=== PATIENT | female | born 1980 | race Caucasian/White ===

== ENCOUNTER 2021-05-18 10:03 | Emergency (ER) | payer BC, SELFPAY ==
[2021-05-18 10:13] VITALS: BP 160/122; PULSE 95; RESP 18; TEMP 36.4; O2SAT 100
--- NOTE | 2021-05-18 10:14 | ED.GENADULT ---
HPI - General Adult General Chief complaint: Upper Respiratory Infection Stated complaint: cough/fever Source: patient Mode of arrival: ambulatory Limitations: no limitations History of Present Illness HPI narrative: Patient is a 40-year-old female who presents to the [facility] via POV for evaluation of upper respiratory symptoms that have been present for 2 weeks. Additionally, she reports productive cough, myalgias, fever, chills, and fatigue. She reports her T-max to be 102.0. Sputum production is small in quantity and thick and white in color. DayQuil and Zyrtec provide minimal relief. She last dosed herself with these medications approximately 30 minutes prior to arrival. Sleep improves symptoms. Nothing worsens symptoms. 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 She is fully vaccinated against Covid. She recently tested negative for Covid twice. History of pneumonia. She states today symptom are identical to previous episode of pneumonia. Related Data Home Medications Medication Instructions Recorded Confirmed cetirizine-pseudoephedrine tablet PO 05/18/21 [Zyrtec-D] citalopram mg 05/18/21 omeprazole 05/18/21 Allergies Allergy/AdvReac Type Severity Reaction Status Date / Time nickel Allergy Intermediate Rash Verified 05/18/21 10:09 Sulfa (Sulfonamide Allergy Unknown Rash Verified 05/18/21 10:09 Antibiotics) Review of Systems Review of Systems: Denies history of COPD, bronchitis, asthma, and pneumonia. Denies current/past tobacco use. Pertinent negatives: sweats, change in appetite, fatigue, skin color changes, headache, nasal congestion/discharge, dizziness, lymphadenopathy, sinus problems, ear pain/drainage, chest pain, heart murmurs, heart palpitations, shortness of breath, wheezing, cyanosis, hemoptysis, hoarseness, orthopnea, pleuritic pain, nausea, vomiting, diarrhea PMFSH Past Medical History Medical History (Updated 05/18/21 @ 10:45 by MIKI Elliott, SHIRLEY) Anxiety Depression GERD (gastroesophageal reflux disease) Seasonal allergies Family History Family History Other Cerebrovascular accident Diabetes mellitus Family history of cardiovascular disease Family history of malignant neoplasm Hypertension Social History Social History Smoking status: Former smoker Alcohol intake: current Comments I have reviewed and agree with the patient's past medical, surgical, social, and family hx as documented by the RN. There is no relevant family history pertinent to the presenting complaint. Exam Narrative: GENERAL: Well-appearing, well-nourished, and in no acute distress. HEAD: Normocephalic, atraumatic. No sinus tenderness or facial swelling appreciated. EYES: PERRLA and EOMI. No evidence of erythema, swelling, or drainage. ENT: Bilateral external ears and ear canals normal. Bilateral TMs are normal.No TM perforation. Nares clear, no rhinorrhea or epistaxis. Bilateral turbinates without erythema/ swelling. Mucous membranes moist and pink. Uvula is midline without erythema and swelling. No evidence of petechial rash, cobblestoning, lesions, ulcers, erythema, swelling, exudates, peritonsillar abscess, tenting, or drooling. Breath odor and voice normal. NECK: Supple. No Lymphadenopathy or nuchal rigidity appreciated. CHEST: Bilateral lung rodriguez are clear to auscultation. No respiratory distress.No pleuritic cp upon examination. Mild wet cough appreciated upon examination. HEART: Regular rate and rhythm. No murmur, gallop, or rub heard. EXTREMITIES: Normal range of motion. No edema. SKIN: Warm, dry, no rash. NEURO: No focal deficits. Alert and oriented x3. Course Course Emergency Course: The patient/guardian displays adequate decision making capability and despite a detailed discussion
[2021-05-18 10:39] VITALS: BP 140/120
== END 2021-05-18 10:52 | disposition home or self-care (01) ==
PROVIDERS: Emergency Provider Nurse Practitioner Family; PCP Emergency Medicine
DX: R05 Cough (principal); Z87.891 Personal history of nicotine dependence; K21.9 Gastro-esophageal reflux disease without esophagitis; F41.9 Anxiety disorder, unspecified; F32.9 Major depressive disorder, single episode, unspecified
CPT/HCPCS: 99203; G0463

== ENCOUNTER 2021-12-08 09:04 | Outpatient (CLI) | payer BC, SELFPAY ==
--- NOTE | 2021-12-08 09:23 | ECG_ITS ---
Measurements Intervals Donna Rate: 90 P: 40 VA: 116 QRS: 48 QRSD: 100 T: 28 QT: 348 QTc: 427 Interpretive Statements SINUS RHYTHM WITH SHORT VA INTERVAL POSSIBLE INFERIOR MYOCARDIAL INFARCTION [30 ms Q WAVE IN II/aVF], PROBABLY OLD ABNORMAL ECG NO PREVIOUS ECG AVAILABLE FOR COMPARISON Electronically Signed On 12-08-2021 15:48:27 CDT by Dillon Reza M.D.
== END 2021-12-08 09:05 | disposition home or self-care (01) ==
LOC: ANHSURGERY 09:06
PROVIDERS: PCP Emergency Medicine; Visit Provider Obstetrics & Gynecology
DX: E78.00 Pure hypercholesterolemia, unspecified (principal); Z01.818 Encounter for other preprocedural examination; R94.31 Abnormal electrocardiogram [ECG] [EKG]
CPT/HCPCS: 93005

== ENCOUNTER 2021-12-13 00:20 | Day surgery (SDC) | payer BC, SELFPAY ==
[2021-12-06 15:40] VITALS: BMI 28.3
--- NOTE | 2021-12-06 15:47 | PC.NURSE ---
Report to the Outpatient Waiting Room, entrance under the green pavilion located off [facility], at time _0745_ on date _12/13/21_. OR Time: _0945_. - You and your visitor will be asked a series of questions to screen for COVID 19 for your protection. - A mask is required within the hospital. One visitor will be allowed to accompany the patient into the hospital. Patients visitor will be instructed to remain with patient at all times or leave the building. We will allow the visitor to come back to the postoperative area when patient is ready. Preoperative COVID Testing Requirements: NONE Patients may have clear liquids (water, carbonated beverages, clear teas, apple juice) until 3 hours prior to surgery (0645 AM) with a maximum of 20 ounces. - No food from midnight until time of surgery Take the following medications with a SIP of water the morning of surgery: __NONE___ Medications to discontinue per physician ____N/A__ Please no make-up, nail ugandan, hairspray, perfume, deodorant, or body powder the day of surgery. No jewelry (including any body piercings) or valuables the day of surgery, leave them at home. Please take a shower or bath the night before, or the morning of, surgery with an antibacterial soap. Wear comfortable, loose fitting clothing. - Jewelry must be removed prior to entering the operating room. Rings and piercings that are not removed may be cut off. - The hospital will not accept responsibility for valuables. - Please leave all valuables, including medications, at home the day of surgery. If you are going home after surgery, a licensed escort car driver must drive you home. - NO public transportation without another adult. - We recommend that an adult stay with you for 24 hours following discharge. - We also recommend that you do not drive, make important decision, drink alcoholic beverages, or take any drugs that were not prescribed by your health care provider for at least 24 hours after your discharge time. Follow any additional instructions given to you from your surgeon. Telephone instructions given to ___PT and asked if any additional questions and then verbalized understanding. Patient advised to call surgeon office or pre surgery nurse liaison [phone] if any additional questions.
--- NOTE | 2021-12-12 13:57 | WPDANESEPPF ---
Anes - Initial Pre Proc Eval Procedure: Operation Date: 12/13/21 09:45 Proposed Procedures p Destruction of Vaginal Lesion - Marie Guaman MD Date/Time: 12/12/21 13:57 Surgeon: Marie Guaman MD Pre Op Diagnosis: Cyst of Vaginal Patient Data Age: 40 Gender: F Height: 1.65 m Weight: 77.27 kg Allergies Allergy/AdvReac Type Severity Reaction Status Date / Time nickel Allergy Intermediate Rash Verified 12/06/21 15:37 Sulfa (Sulfonamide Allergy Unknown Rash Verified 12/06/21 15:37 Antibiotics) Home Medications Medication Instructions Recorded Confirmed Type citalopram 10 mg PO HS 05/18/21 12/06/21 History omeprazole 20 mg PO QAM 05/18/21 12/06/21 History cetirizine 10 mg capsule 10 mg PO DAILY PRN 11/08/21 12/06/21 History rosuvastatin 10 mg tablet 10 mg PO HS 11/08/21 12/06/21 History calcium 1 cap DAILY 12/06/21 12/06/21 History semaglutide [Ozempic] 0.25 mg SUBCUT WEEKLY 12/06/21 12/06/21 History Patient hx anesthesia problems: none Family hx anesthesia problems: none Results Review: All pre-operative results and documents have been reviewed as part of the pre-operative evaluation. [facility] Past Medical History Medical History Allergies Anxiety Depression GERD (gastroesophageal reflux disease) History of fracture of leg Hyperlipidemia Seasonal allergies Surgical History Surgical History History of History of cholecystectomy History of elbow surgery History of removal of retained hardware Family History Family History Other Cerebrovascular accident Diabetes mellitus Family history of cardiovascular disease Family history of malignant neoplasm Hypertension Social History Social History Smoking packs per day: 0.5 Smoking cigarettes per day: 10.0 Years smoked: 14 Smoking pack-years: 7.00 Smoking status: Former smoker Tobacco type: e-cigarettes/vaping Second hand tobacco smoke exposure: Yes Additional smoking assessment comments: CURRENTLY USING E-CIGARETTES/VAPING Alcohol intake: current Alcohol use details: STATES 15-20 DRINKS/WEEK Substance use: never Substance use type: does not use Living arrangements: with family Additional occupation/education comments: RN Gender identity (if verbalized by the patient): Female Spiritual care concerns: No Anes - Eval Final PreProcedure Day of Procedure 12/12/21 13:57 Patient weight: overweight Heart: regular rate and rhythm Lungs: clear to auscultation and normal air movement Airway: Mallampati scale class II Neurological: alert and oriented Last oral intake: >/= 8 hours ASA classification: II Emergent: no Anesthetic plan: proceed Anesthesia type and monitoring: general GIVS Results Review: All pre-operative results and documents have been reviewed as part of the pre-operative evaluation. Informed Consent: The patient's anesthetic plan and its attendant risks and benefits were discussed with the patient/family/POA. Questions were solicited and answers provided to the satisfaction of the patient/family/POA.
--- NOTE | 2021-12-13 08:17 | PM.IMHP ---
H&P: HPI History of Present Illness Date/Time: 12/13/21 08:17 this patient is a 40-year-old female presents for vulvar lesion. She has a subcutaneous vulvar cyst. We have agreed to perform resection of vulvar cyst. She understands that there is risk. She understands that there is significant risk of wound breakdown. She understands there is risk of infection, hemorrhage. Reasons injuries may occur that result in hospitalization, more surgery, and severe illness. She denies any chest pain shortness of breath. She denies any nausea, vomiting, fever, chills. Chief Complaint: Vulvar lesion Review of Systems Review of Systems: All systems reviewed & are unremarkable except as noted in HPI and below Constitutional: Constitutional: Denies chills, Denies fatigue, Denies fever(s) and Denies weakness Eyes: Eyes: Denies blurry vision, Denies change in vision, Denies loss of peripheral vision, Denies loss of vision, Denies other visual disturbances and Denies eye pain ENT: Denies vertigo, Denies dizziness, Denies hearing loss, Denies mouth pain, Denies nasal obstruction, Denies neck mass and Denies neck pain Cardiovascular: Cardiovascular: Denies chest pain, Denies diaphoresis, Denies syncope, Denies leg edema and Denies dyspnea Respiratory: Respiratory: Denies chest congestion, Denies cough, Denies hemoptysis, Denies dyspnea and Denies wheezing Gastrointestinal: Gastrointestinal: Denies abdominal pain, Denies constipation, Denies diarrhea, Denies nausea and Denies vomiting Genitourinary: Genitourinary: Denies hematuria, Denies change in libido, Denies nocturia, Denies genital lesions, Denies flank pain and Denies urinary urgency Musculoskeletal: Musculoskeletal: Denies abnormal gait, Denies back pain, Denies myalgias, Denies arthralgias, Denies joint swelling, Denies muscle weakness and Denies neck pain Integumentary/Breasts: Skin/Breast: Denies swelling, Denies breast pain, Denies breast mass, Denies dry skin, Denies nipple discharge, Denies unusual bruising and Denies jaundice Neurologic: Denies Neuro-related abnormal movements, Denies Abnormal speech present, Denies abnormal gait, Denies behavioral changes, Denies confusion, Denies vertigo, Denies dizziness, Denies syncope, Denies loss of vision, Denies memory loss, Denies convulsions and Denies weakness Psychiatric: Psychiatric: Denies abnormal sleep pattern, Denies behavioral changes, Denies change in libido, Denies confusion, Denies depression, Denies anhedonia and Denies memory loss Endocrine: Endocrine: Reports no additional endocrine complaints, Denies change in libido and Denies fatigue Hematologic/Lymphatic: Hematologic/Lymphatic: Reports no additional hematologic/lymphatic complaints Allergic/Immunologic: Allergic/Immunologic: Reports no additional allergic/immunologic complaints and Denies wheezing PMFSH Past Medical History Medical History Allergies Anxiety Depression GERD (gastroesophageal reflux disease) History of fracture of leg Hyperlipidemia Seasonal allergies Surgical History Surgical History History of History of cholecystectomy History of elbow surgery History of removal of retained hardware Family History Family History Other Cerebrovascular accident Diabetes mellitus Family history of cardiovascular disease Family history of malignant neoplasm Hypertension Social History Social History Smoking packs per day: 0.5 Smoking cigarettes per day: 10.0 Years smoked: 14 Smoking pack-years: 7.00 Smoking status: Former smoker Tobacco type: e-cigarettes/vaping Second hand tobacco smoke exposure: Yes Additional smoking assessment comments: CURRENTLY USING E-CIGARETTES/VAPING Alcohol intake: current Alcoho
--- NOTE | 2021-12-13 08:21 | WPDHPUPDATE1 ---
History and Physical Update Update Date/Time: 12/13/21 08:21 History and Physical has been reviewed, including an updated exam of the patient. There are NO changes in the patient's condition. Risks, benefits, and alternatives have been discussed and questions answered. Patient agrees to proceed with procedure.
[2021-12-13] MEDS: LACTATED RINGERS 1,000 ML 30 ML IV CONT (08:31)
[2021-12-13 09:33] VITALS: BP 148/108; PULSE 92; RESP 18; TEMP 36.4; O2SAT 100
[2021-12-13] MEDS: LIDO 1%/EPINEPHRINE 1:100,000 50 ML VIAL INFILTRATE (10:07)
[2021-12-13 10:15] VITALS: BP 120/72; PULSE 88; RESP 16; O2SAT 96
--- NOTE | 2021-12-13 10:24 | W.PM.PROC2 ---
Procedure Note - Detailed Date of Procedure 12/13/21 Pre-op Diagnosis Cyst of Vagina Post-op Diagnosis Same Procedure Performed Excision of vaginal cyst Surgeon Marie Guaman MD Anesthesia MAC Indications Painful Vaginal cyst Findings Three cysts composing an area of 3 cm submucosal vaginal cyst complex of the angelika-urethral area. Mucus filled cyst. Description of Procedure Patient was taken to the operating room. She was prepped and draped in the dorsal lithotomy position after induction of MAC anesthesia. The cyst was located submucosally of the anterior vagina. A catheter was placed in the urethra. It was found to be a distinctly separate structure from the urethra. The cyst was grasped with Raul clamps. It was unroofed with the scissors. The edges of the skin incision were then grasped. The cystic structure was was then resected using sharp dissection. The bleeding areas were cauterized. Any cyst capsule remaining after the dissection was cauterized gently. Three layers of 3-0 Vicryl were then placed. One when the D. To make the area hemostatic. A subsequent layered close defect and then a running locked suture was used to close the vaginal mucosa. She tolerated the procedure well. She is in cover stable condition. Sponge lap needle counts were correct x2. Estimated Blood Loss -10.0 Drains No Packing No Pathology Yes Complications No immediate complications Condition Stable Disposition Same day
[2021-12-13 10:40] VITALS: BP 128/91; PULSE 73; RESP 16
== END 2021-12-13 10:55 | disposition home or self-care (01) ==
PROVIDERS: PCP Emergency Medicine; Visit Provider Obstetrics & Gynecology
PROC: (CPT 57135; principal; 2021-12-13 09:45)
DX: N89.8 Other specified noninflammatory disorders of vagina (principal); E78.5 Hyperlipidemia, unspecified; K21.9 Gastro-esophageal reflux disease without esophagitis; F41.8 Other specified anxiety disorders; F17.290 Nicotine dependence, other tobacco product, uncomplicated
CPT/HCPCS: 57135; 88305; A9270; J1100; J2250; J2405; J2704; J3010; J7120

== ENCOUNTER → 2022-06-01 12:43 | Outpatient (CLI) | payer BC, SELFPAY ==
--- NOTE | ~2022-06-01 | MM_ITS ---
EXAMINATION: MM screening loco BI w fredy HISTORY: Screening mammogram TECHNIQUE: Craniocaudal and mediolateral oblique 3-D tomosynthesis images were obtained and synthetic 2-D images were generated. CAD analysis was submitted and interpreted. COMPARISON: None, baseline BREAST PARENCHYMAL COMPOSITION: There are scattered areas of fibroglandular density FINDINGS: RIGHT BREAST: No suspicious mass, calcification, or architectural distortion are identified to sugges t malignancy. LEFT BREAST: There are focal asymmetries in the middle and posterior third of the upper and upper out er breast. IMPRESSION: 1. Focal asymmetries of the left breast. 2. Additional mammographic views and possible breast ultrasound are recommended. BI-RADS Category 0: Incomplete: Needs additional imaging evaluation. Reviewed, dictated and finalized at location A. IMPRESSION: 1. Focal asymmetries of the left breast. 2. Additional mammographic views and possible breast ultrasound are recommended . BI-RADS Category 0: Incomplete: Needs additional imaging evaluation.
== END ==
PROVIDERS: PCP Emergency Medicine; Visit Provider Obstetrics & Gynecology
DX: Z12.31 Encounter for screening mammogram for malignant neoplasm of breast (principal); R92.8 Other abnormal and inconclusive findings on diagnostic imaging of breast
CPT/HCPCS: 77063; 77067

== ENCOUNTER → 2022-08-13 14:32 | Outpatient (CLI) | payer BC, SELFPAY ==
--- NOTE | ~2022-08-13 | MMUS_ITS ---
EXAMINATION: MM diagnostic loco LT w fredy, US breast LT complete HISTORY: Follow-up left breast asymmetries TECHNIQUE: Additional 3-D tomosynthesis images of the left were performed and synthetic 2-D images we re generated. CAD analysis was submitted and interpreted. High resolution complete left breast ultras ound was performed. COMPARISON: 06/01/2022 BREAST PARENCHYMAL COMPOSITION: BREAST PARENCHYMAL COMPOSITION: There are scattered areas of fibroglandular density. FINDINGS: MAMMOGRAPHIC FINDINGS: No discrete mass or architectural distortion is identified with spot compression or mediolateral view s. There are no suspicious cluster of calcifications. ULTRASOUND: Complete US of all 4 quadrants of the left breast and retroareolar region was reviewed. At 1:00 near the nipple there is a 5 mm cyst. No suspicious masses are identified in the left breast to suggest ma lignancy. IMPRESSION: 1. No evidence for malignancy in the left breast. 2. Routine yearly screening mammogram and regular clinical breast examination are recommended. BI-RADS Category 2: Benign finding(s). Reviewed, dictated and finalized at location A. ER IMPRESSION: 1. No evidence for malignancy in the left breast. 2. Routine yearly screening mammogram and regular clinical breast examination a re recommended. BI-RADS Category 2: Benign finding(s).
== END ==
PROVIDERS: PCP Obstetrics & Gynecology; Visit Provider Nurse Practitioner Obstetrics & Gynecology
DX: N64.59 Other signs and symptoms in breast (principal)
CPT/HCPCS: 76641; 77061; 77065; G0279

== ENCOUNTER 2022-08-22 14:48 | Emergency (ER) | payer BC, SELFPAY ==
[2022-08-22 14:59] VITALS: BP 131/96; PULSE 86; RESP 16; TEMP 36.6; O2SAT 100
--- NOTE | 2022-08-22 15:20 | ED.URI ---
HPI - URI/Sore Throat General Chief Complaint: Upper Respiratory Infection Stated Complaint: cough; body ache Time Seen by Provider: 08/22/22 15:20 Source: patient and RN notes reviewed Mode of arrival: ambulatory Limitations: no limitations History of Present Illness HPI Narrative: 41-year-old female presented for complaint of barking cough over the last 2 days. Today she developed body aches, headache, and fatigue. She also reports her is positive for flu yesterday. She currently denies shortness of breath, wheezing, nausea, vomiting, diarrhea. She has not taken anything for symptoms. MD elicited complaint: cough Related Data Home Medications Medication Instructions Recorded Confirmed citalopram 10 mg tablet 10 mg PO HS 05/18/21 08/22/22 omeprazole 20 mg capsule,delayed 20 mg PO QAM 05/18/21 08/22/22 release rosuvastatin 10 mg tablet 10 mg PO HS 11/08/21 08/22/22 semaglutide 0.25 mg or 0.5 mg (2 0.25 mg subcut WEEKLY 12/06/21 08/22/22 mg/1.5 mL) subcutaneous pen injector (Ozempic) calcium carbonate 600 mg calcium 600 mg PO DAILY 08/01/22 08/22/22 (1,500 mg) tablet (Calcium) Allergies Allergy/AdvReac Type Severity Reaction Status Date / Time nickel Allergy Intermediate Rash Verified 08/22/22 15:18 Sulfa (Sulfonamide Allergy Unknown Rash Verified 08/22/22 15:18 Antibiotics) Review of Systems Review of Systems: per HPI [facility] Past Medical History Medical History Allergies Anxiety Depression GERD (gastroesophageal reflux disease) History of fracture of leg Hyperlipidemia Seasonal allergies Surgical History Surgical History History of History of cholecystectomy History of elbow surgery History of removal of retained hardware Family History Family History Other Cerebrovascular accident Diabetes mellitus Family history of cardiovascular disease Family history of malignant neoplasm Hypertension Social History Social History Smoking packs per day: 0.5 Smoking cigarettes per day: 10.0 Years smoked: 14 Smoking pack-years: 7.00 Smoking status: Former smoker Tobacco type: e-cigarettes/vaping Second hand tobacco smoke exposure: Yes Additional smoking assessment comments: CURRENTLY USING E-CIGARETTES/VAPING Alcohol intake: current Alcohol use details: STATES 15-20 DRINKS/WEEK Substance use: never Substance use type: does not use Additional occupation/education comments: RN Gender identity (if verbalized by the patient): Female Spiritual care concerns: No Exam Narrative: GENERAL: well-appearing EYES: PERRLA, conjunctivae clear ENT: Mucous membranes moist. TMs pearly saravia with dull light reflex bilaterally; no tragal tenderness. Oropharynx erythematous without lesions or exudate CHEST: Clear to auscultation, breath sounds equal. HEART: Regular rate and rhythm. No murmur heard. SKIN: Warm, dry, no rash. NEURO: Alert and oriented x3. PSYCH: Normal mood and affect Course Course Emergency Course: Patient is aware of diagnosis, understands and agrees to treatment plan. Anticipatory guidance given. Patient agrees to follow-up as directed and is aware of reasons to seek care at the emergency department. Portions of this record may have been created with voice recognition software Level of Care: Express Care Visit Vital Signs Vital signs: Vital Signs Temperature 98 F 08/22/22 14:59 Pulse Rate 86 08/22/22 14:59 Respiratory Rate 16 08/22/22 14:59 Blood Pressure 131/96 H 08/22/22 14:59 Pulse Oximetry 100 08/22/22 14:59 Temperature 98 F 08/22/22 14:59 Pulse Rate 86 08/22/22 14:59 Respiratory Rate 16 08/22/22 14:59 Blood Pressure 131/96 H 08/22/22 14:59 Pulse Oximetry 100
== END 2022-08-22 15:30 | disposition home or self-care (01) ==
PROVIDERS: Emergency Provider Nurse Practitioner Family; PCP Emergency Medicine
DX: B34.9 Viral infection, unspecified (principal); K21.9 Gastro-esophageal reflux disease without esophagitis; E78.5 Hyperlipidemia, unspecified; Z87.891 Personal history of nicotine dependence; Z20.822 Contact with and (suspected) exposure to COVID-19
CPT/HCPCS: 87426; 87804; 99213; C9803; G0463

== ENCOUNTER 2022-09-25 15:30 | Outpatient (RCR) | payer BC, SELFPAY ==
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
--- NOTE | 2022-09-25 16:21 | PTOPDC ---
Assessment and note entered by Kia Krause, PT, DPT Evaluation Information Assessment Status Discharge Diagnosis bilat knee pain Onset 10 years Subjective Information Overall pt states things are going well. She states for the last month she has been really complaint and has felt really great. She states this last week she has slacked a little bit d/t sick kids and life being really busy. Pt reports 40% improvement in overall symptoms since starting therapy. Reported Pain Level Pain Score 0,0: Self Report Assessment PT Clinical Summary Darlyn presents to therapy today for her progress report following 5 visits of skilled therapy to treat her heena knee pain. Today she demonstrates improved hip and knee strength heena, improved functional strength and stability, decreased tissue density in hamstrings and ITB, and increased ankle ROM. She is progressing well towards her therapy goals and feels like she has a good understand of her remaining deficits. She would like to continue her HEP on her own. Therapist is agreeable to this POC. She will be discharged at this time. Plan of Care PT Services Indicated No Treatment Frequency and to be discharged Duration
== END 2022-09-27 11:06 | disposition home or self-care (01) ==
LOC: ANHGOSHPT 15:30
PROVIDERS: PCP Obstetrics & Gynecology; Visit Provider Orthopaedic Surgery
DX: M17.0 Bilateral primary osteoarthritis of knee (principal); M25.561 Pain in right knee; M25.562 Pain in left knee
CPT/HCPCS: 97110; 97112; 97140; 97161; 97530

== ENCOUNTER 2022-10-18 12:11 | Emergency (ER) | payer BC, SELFPAY ==
[2022-10-18 12:23] VITALS: BP 135/99; PULSE 103; RESP 16; TEMP 36.4; O2SAT 100
--- NOTE | 2022-10-18 12:36 | ED.URI ---
HPI - URI/Sore Throat General Chief Complaint: Upper Respiratory Infection Stated Complaint: fatigue, headache, rt ear pain, sore throat Time Seen by Provider: 10/18/22 12:36 Source: patient and RN notes reviewed Mode of arrival: ambulatory Limitations: no limitations History of Present Illness HPI Narrative: 41 y/o female presented for c/o fatigue, body aches, right ear pain, headache, and sore throat. Onset 2 days. 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 Not taking anything for symptoms. Denies sob, wheezing, n/v/d/f/c. Took 2 negative covid tests at home since symptom onset. MD elicited complaint: cough Related Data Home Medications Medication Instructions Recorded Confirmed citalopram 10 mg tablet 10 mg PO HS 05/18/21 10/10/22 omeprazole 20 mg capsule,delayed 20 mg PO QAM 05/18/21 10/10/22 release rosuvastatin 10 mg tablet 10 mg PO HS 11/08/21 10/10/22 semaglutide 0.25 mg or 0.5 mg (2 0.25 mg subcut WEEKLY 12/06/21 10/10/22 mg/1.5 mL) subcutaneous pen injector (Ozempic) calcium carbonate 600 mg calcium 600 mg PO DAILY 08/01/22 10/10/22 (1,500 mg) tablet (Calcium) meloxicam 7.5 mg tablet 7.5 mg PO DAILY 10/10/22 10/10/22 Allergies Allergy/AdvReac Type Severity Reaction Status Date / Time nickel Allergy Intermediate Rash Verified 10/10/22 14:50 Sulfa (Sulfonamide Allergy Unknown Rash Verified 10/10/22 14:50 Antibiotics) Review of Systems Review of Systems: ROS per HPI [facility] Past Medical History Medical History Allergies Anxiety Depression GERD (gastroesophageal reflux disease) History of fracture of leg Hyperlipidemia Seasonal allergies Surgical History Surgical History History of History of cholecystectomy History of elbow surgery History of removal of retained hardware Tibia/fibula fracture, shaft bilateral tibial rodding Family History Family History Other Cerebrovascular accident Diabetes mellitus Family history of cardiovascular disease Family history of malignant neoplasm Hypertension Social History Social History Smoking packs per day: 0.5 Smoking cigarettes per day: 10.0 Years smoked: 14 Smoking pack-years: 7.00 Smoking status: Former smoker Tobacco type: e-cigarettes/vaping Second hand tobacco smoke exposure: Yes Additional smoking assessment comments: CURRENTLY USING E-CIGARETTES/VAPING Alcohol intake: current Alcohol use details: STATES 15-20 DRINKS/WEEK Substance use: never Substance use type: does not use Living arrangements: with family Occupation/Education: occupation Additional occupation/education comments: RN Gender identity (if verbalized by the patient): Female Spiritual care concerns: No Exam Narrative: GENERAL: mildly Ill-appearing, nontoxic EYES: PERRLA, conjunctivae clear ENT: Mucous membranes moist. TMs pearly saravia with light reflex bilaterally; no tragal tenderness. Oropharynx mildly erythematous without lesions or exudate NECK: Supple. No lymphadenopathy CHEST: Clear to auscultation, breath sounds equal. No wheezing, rhonchi, rales, or stridor. HEART: Regular rate and rhythm. No murmur heard. SKIN: Warm, dry, no rash. NEURO: Alert and oriented x3. PSYCH: Normal mood and affect Course Course Emergency Course: Patient is aware of diagnosis, understands and agrees to treatment plan. Anticipatory guidance given. Patient agrees to follow-up as directed and is aware of reasons to seek care at the emergency department. Portions of this record may have been created with voice recognition software Level of Care: Express Care Visit Vital Signs Vital signs: Vital Signs Temperature 97.5 F L 10/18/22 12:23 Pulse Rate 103 H 10/18/22 12:23
== END 2022-10-18 13:05 | disposition home or self-care (01) ==
PROVIDERS: Emergency Provider Nurse Practitioner Family; PCP Emergency Medicine
DX: B34.9 Viral infection, unspecified (principal); F17.290 Nicotine dependence, other tobacco product, uncomplicated; K21.9 Gastro-esophageal reflux disease without esophagitis; E78.5 Hyperlipidemia, unspecified; F41.9 Anxiety disorder, unspecified; F32.A Depression, unspecified
CPT/HCPCS: 87081; 87804; 87880; 99213; G0463

== ENCOUNTER 2024-05-04 13:13 | Emergency (ER) | payer BC, SELFPAY ==
--- NOTE | ~2024-05-04 | CT_ITS ---
EXAMINATION: CT brain wo con DATE: 05/04/2024 14:02 INDICATION: Headache. TECHNIQUE: Computed tomography (CT) of the head was performed without intravenous contrast. The mA wa s adjusted according to patient size. Iterative reconstruction technique was employed. The dose-lengt h product was 605.33 mGy-cm. COMPARISON: Head CT 08/11/2017 FINDINGS: There is no intracranial hemorrhage, acute infarction, or abnormal intracranial mass lesion . The ventricles are normal in size. The orbits are normal. There is mild mucosal thickening in the p aranasal sinuses. The mastoid air cells are normal. IMPRESSION: 1. Normal brain. Reviewed, dictated and finalized at location A. IMPRESSION: 1. Normal brain.
[2024-05-04 13:44] VITALS: BP 169/107; PULSE 77; RESP 18; TEMP 36.7; O2SAT 99
--- NOTE | 2024-05-04 13:47 | ECG_ITS ---
Test Date: 2024-05-04 14:13:48 Measurements Intervals [place] Rate: 70 P: 56 MD: 138 QRS: 40 QRSD: 96 T: 37 QT: 377 QTc: 407 Interpretive Statements SINUS RHYTHM BASELINE ARTIFACT- I, II, III, AVR, AVL, V5-V6 NORMAL ECG No previous ECG available for comparison Electronically Signed On 05-04-2024 14:16:32 CDT by Boyd Salas D.O.
--- NOTE | 2024-05-04 13:48 | ED.GENADULT ---
HPI - General Adult General Chief complaint: Unspecified <Jacqueline Prado PA-C - Last Filed: 05/06/24 10:42> Stated complaint: episodes of aura since this AM <Jacqueline Prado PA-C - Last Filed: 05/06/24 10:42> Time Seen by Provider: 05/04/24 13:48 <Jacqueline Prado PA-C - Last Filed: 05/06/24 10:42> Focused HPI: This is a 43-year-old female that presents to the emergency department for headaches this morning. Reports she will get nauseas, get an intense headache, and have a feeling of jessica vu. This lasts for about 3 minutes and then resolves. She has had several episodes like this this morning which prompted her to be seen. Denies focal numbness or weakness. GENERAL: Well-appearing, well-nourished, and in no acute distress. HEAD: Normocephalic, atraumatic. CHEST: Clear to auscultation. ?No respiratory distress. HEART: Regular rate and rhythm.? NEURO: ?Alert and oriented x3. Patient screened in triage and initial orders placed.? ?Additional care and disposition to be based upon?diagnostic testing and treatment. <Jacqueline Prado PA-C - Last Filed: 05/06/24 10:42> History of Present Illness HPI narrative: Agree with HPI. For and symptoms. Patient feels flushed with butterflies in her stomach as well as dizziness and nausea. Unsure if related to head movements. Can last for 15 minutes. Concerned she could be having temporal lobe seizures mucosa a neurologist told her that once in the past when she had similar symptoms. NO drug use. No URI. no numbness/weakness to an arm/leg. <Taras Viera MD - Last Filed: 05/04/24 19:17> Related Data Home medications: Home Medications Medication Instructions Recorded Confirmed citalopram 10 mg tablet 10 mg PO HS 05/18/21 10/10/22 omeprazole 20 mg capsule,delayed 20 mg PO QAM 05/18/21 10/10/22 release rosuvastatin 10 mg tablet 10 mg PO HS 11/08/21 10/10/22 semaglutide 0.25 mg or 0.5 mg (2 0.25 mg subcut WEEKLY 12/06/21 10/10/22 mg/1.5 mL) subcutaneous pen injector (Ozempic) calcium carbonate (Calcium 600) 600 mg PO DAILY 08/01/22 10/10/22 meloxicam 7.5 mg tablet 7.5 mg PO DAILY 10/10/22 10/10/22 <Jacqueline Prado PA-C - Last Filed: 05/06/24 10:42> Allergies/adverse reactions: Allergies Allergy/AdvReac Type Severity Reaction Status Date / Time nickel Allergy Intermediate Rash Verified 05/04/24 13:49 Sulfa (Sulfonamide Allergy Unknown Rash Verified 05/04/24 13:49 Antibiotics) <Jacqueline Prado PA-C - Last Filed: 05/06/24 10:42> Review of Systems Review of Systems: All systems reviewed & are unremarkable except as noted in HPI and below <Taras Viera MD - Last Filed: 05/04/24 19:17> Constitutional: Constitutional: Reports no additional constitutional complaints, Denies chills, Denies fever(s) and Reports headache(s) <Taras Viera MD - Last Filed: 05/04/24 19:17> Comments: Feeling flushed <Taras Viera MD - Last Filed: 05/04/24 19:17> ENT: Reports system reviewed and no additional complaints, except as documented <Taras Viera MD - Last Filed: 05/04/24 19:17> Cardiovascular: Cardiovascular: Reports no additional cardiovascular complaints <Taras Viera MD - Last Filed: 05/04/24 19:17> Respiratory: Respiratory: Reports no additional respiratory complaints <Taras Viera MD - Last Filed: 05/04/24 19:17> Neurologic: Reports dizziness, Reports headache(s), Denies focal weakness, Denies Other visual disturbances and Denies tingling <Taras Viera MD - Last Filed: 05/04/24 19:17> PMFSH Past Medical History Medical History: Medical History Allergies Anxiety Depression GERD (gastroesophageal reflux disease) History of fracture of leg Hyperlipidemia Seasonal allergies <ASYA Darby Last Filed: 05/06/24 10:42> Surgical History Surgical History: Surgical History (Reviewed 10/18/22 @ 12:47 b
[2024-05-04 14:27] VITALS: BP 151/109; PULSE 97; RESP 20; O2SAT 99
[2024-05-04 14:28] LABS: BEDSIDEPREGUCG Negative (Negative)
[2024-05-04 14:38] LABS: Basophils Percent Auto 0.5 % (0.2-1.2); Eosinophils Absolute Auto 0.1 K/mm3 (0-0.3); Eosinophils Percent Auto 0.8 % (0-4.4); Hemoglobin 12.7 g/dL (12.0-15.0); Immature Granulocyte Absolute 0.03 K/mm3 (0.00-0.031); Immature Granulocyte Percent A 0.5 % (0-0.5); Lymphocytes Absolute Auto 1.06 K/mm3 (0.9-3.2); Lymphocytes Percent Auto 17.2 % (18.3-44.2); Mean Corpuscular HGB Conc 34.3 g/dl (32-36); Mean Corpuscular Hemoglobin 30.8 pg (26-34); Mean Corpuscular Volume 89.6 fl (80-100); Mean Platelet Volume 9.6 fl (7.4-10.4); Monocytes Absolute Auto 0.6 K/mm3 (0.1-0.6); Monocytes Percent Auto 9.6 % (2.6-8.5); Neutrophils Absolute Auto 4.4 K/mm3 (1.3-6.7); Neutrophils Percent Auto 71.4 % (45.5-73.1); Platelet Count Result 242 k/mm3 (150-375); Red Blood Count 4.13 M/mm3 (4.2-5.4); Red Cell Distribution Width 12.1 % (11.5-14.5); White Blood Count 6.2 K/mm3 (4.5-10.0)
[2024-05-04 14:41] LABS: Add Urine Microscopic? NO; Appearance Urine Clear (Clear); Bilirubin Urine Negative (Negative); Blood Urine Negative (Negative); Color Urine Yellow (Yellow); Glucose Urine UA Negative (Negative); Ketones Urine Trace mg/dL (Negative); Leukocyte Esterase Ur Negative LEU/UL (Negative); Nitrate Urine Negative (Negative); Protein Urine Negative (Negative); Specific Grav Ur 1.029 (1.001-1.035); pH Urine 6.5 (5.0-9.0)
[2024-05-04 14:48] LABS: INR 0.9; Prothrombin Time 12.4 Seconds (11.1-14.7)
[2024-05-04 14:49] LABS: Ethanol < 10 mg/dL (<10); Partial Thromboplastin Time 27.6 Seconds (22.3-36.8)
[2024-05-04 14:54] LABS: Alanine Aminotransferase 25 U/L (6-35); Albumin Level 4.5 g/dL (3.5-5.1); Alkaline Phosphatase 65 U/L (38-126); Anion Gap 10 mmol/L (4-12); Aspartate Amino Transferase 26 U/L (14-36); Bilirubin,Total 0.9 mg/dL (0.2-1.3); Blood Urea Nitrogen 10 mg/dL (7-17); Calcium 9.3 mg/dL (8.4-10.2); Carbon Dioxide 26 mmol/L (22-30); Chloride 96 mmol/L (98-107); Estimated CRCL calculation 119 ml/min; Estimated Glomerular Filt Rate > 60; Glucose 103 mg/dL (65-110); Sodium 132 mmol/L (137-145)
[2024-05-04 15:19] LABS: Amphetamine Screen Urine Negative (Negative); Barbiturate Screen Urine Negative (Negative); Benzodiazepines Screen Urine Negative (Negative); Cannabinoid Screen Urine Negative (Negative); Cocaine Screen Urine Negative (Negative); Methadone Screen Urine Negative (Negative); Opiate Screen Urine Negative (Negative); Phencyclidine Screen Urine Negative (Negative)
[2024-05-04] MEDS: SODIUM CHLORIDE 0.9% IV 1,000 ML 999 ML IV CONT (17:28)
[2024-05-04] MEDS: KETOROLAC 30 MG/ML VIAL (*BKC) IV PUSH (17:29)
[2024-05-04] MEDS: MECLIZINE HCL 25 MG TABLET PO (17:29)
[2024-05-04 18:16] VITALS: BP 122/79; PULSE 76; RESP 15; O2SAT 100
[2024-05-04 19:17] VITALS: BP 124/86; PULSE 73; RESP 17; O2SAT 98
== END 2024-05-04 19:25 | disposition home or self-care (01) ==
PROVIDERS: Physician Assistant; Emergency Provider Emergency Medicine; PCP Emergency Medicine
DX: R42 Dizziness and giddiness (principal); F41.9 Anxiety disorder, unspecified; F32.A Depression, unspecified; K21.9 Gastro-esophageal reflux disease without esophagitis; E78.5 Hyperlipidemia, unspecified
CPT/HCPCS: 36415; 70450; 80053; 80307; 81003; 81025; 85025; 85610; 85730; 93005; 96361; 96374; 99284; A9270; J1885; J7030

== ENCOUNTER 2025-08-04 15:57 | Outpatient (CLI) | payer BC, SELFPAY ==
--- NOTE | ~2025-08-04 | MM_ITS ---
EXAMINATION: MM screening loco BI w fredy HISTORY: Screening. TECHNIQUE: Craniocaudal and mediolateral oblique 3-D tomosynthesis images were obtained and synthetic 2-D images were generated. CAD analysis was submitted and interpreted. COMPARISON: 2021 BREAST PARENCHYMAL COMPOSITION: Dense: The breasts are heterogeneously dense FINDINGS: No suspicious masses are seen. There are no suspicious calcifications. No unexplained architectural distortion is seen. There are no skin or nipple abnormalities identified. There is no adenopathy seen on the images submitted. IMPRESSION: No mammographic evidence to suggest malignancy is seen. The patient may return to screening mammography as per ACR guidelines. BI-RADS 1 - Negative. Reviewed, dictated and finalized at location C. [employer] IN[employer]
== END 2025-08-04 15:58 | disposition home or self-care (01) ==
LOC: MICIMG 15:57
PROVIDERS: PCP Emergency Medicine; Visit Provider Obstetrics & Gynecology
DX: Z12.31 Encounter for screening mammogram for malignant neoplasm of breast (principal)
CPT/HCPCS: 77063; 77067